=== PATIENT | male | born 1995 | race Caucasian/White ===

== ENCOUNTER 2018-10-06 15:04 | Emergency (ER) | payer MEDICAID ==
[2018-10-06 15:41] VITALS: BP 145/77
--- NOTE | 2018-10-06 16:35 | UC ---
Ear Complaint HPI - HPI Summary HPI Summary: Pt presents with c/o right ear feeling plugged. Pt states that he wears ear plugs at work - History of Current Complaint Chief Complaint: UCEar Stated Complaint: RIGHT EAR PLUGGED Time Seen by Provider: 10/06/18 16:23 Hx Obtained From: Patient Onset/Duration: Gradual Onset, Lasting Days, Still Present Severity Initially: Mild Severity Currently: Moderate Pain Intensity: 0 Associated Signs/Symptoms: Positive: Hearing Loss - Allergies/Home Medications Allergies/Adverse Reactions: Allergies Allergy/AdvReac Type Severity Reaction Status Date / Time No Known Allergies Allergy Verified 10/06/18 15:37 Home Medications: Home Medications NK [No Home Medications Reported] 10/06/18 [History Confirmed 10/06/18] PMH/Surg Hx/FS Hx/Imm Hx Previously Healthy: Yes - Surgical History Surgical History: None - Family History Known Family History: Positive: Cardiac Disease - Social History Occupation: Employed Full-time Lives: With Family Alcohol Use: None Substance Use Type: None Smoking Status (MU): Heavy Every Day Tobacco Smoker Type: Cigarettes, Smokeless Tobacco Amount Used/How Often: 1/2 PPD Have You Smoked in the Last Year: Yes - Immunization History Vaccination Up to Date: No Review of Systems All Other Systems Reviewed And Are Negative: Yes Constitutional: Positive: Negative Skin: Positive: Negative Eyes: Positive: Negative ENT: Positive: Ear Ache - loss of hearing right ear Respiratory: Positive: Negative Cardiovascular: Positive: Negative Gastrointestinal: Positive: Negative Genitourinary: Positive: Negative Motor: Positive: Negative Neurovascular: Positive: Negative Musculoskeletal: Positive: Negative Neurological: Positive: Negative Psychological: Positive: Negative Is Patient Immunocompromised?: No Physical Exam Triage Information Reviewed: Yes Appearance: Well-Appearing Vital Signs: Initial Vital Signs Temp 97.2 F 10/06/18 15:37 Pulse 54 10/06/18 15:37 Resp 16 10/06/18 15:37 BP 145/77 10/06/18 15:37 Pulse Ox 100 10/06/18 15:37 Vital Signs Reviewed: Yes Eye Exam: Normal ENT: Positive: Other - bilateral cerumen impaction Dental Exam: Normal Neck exam: Normal Respiratory: Positive: No respiratory distress Musculoskeletal Exam: Normal Neurological Exam: Normal Psychological Exam: Normal Skin Exam: Normal Ear Complaint Course/Dx - Differential Dx/Diagnosis Differential Diagnosis/HQI/PQRI: Cerumen Impaction Provider Diagnosis: Impacted cerumen, bilateral Discharge - Sign-Out/Discharge Documenting (check all that apply): Patient Departure All imaging exams completed and their final reports reviewed: No Studies - Discharge Plan Condition: Stable Disposition: HOME Patient Education Materials: Cerumen Impaction (ED) Referrals: No Primary Care Phys,NOPCP [Primary Care Provider] - [facility] [place] PHYSICIAN REFERRAL [Outside] - If Needed - Billing Disposition and Condition Condition: STABLE Disposition: Home
== END 2018-10-06 17:06 | disposition home or self-care (01) ==
LOC: UCCORT 15:04
DX: H61.23 Impacted cerumen, bilateral (principal); F17.210 Nicotine dependence, cigarettes, uncomplicated
CPT/HCPCS: 99203; G0463

== ENCOUNTER 2019-02-13 13:10 | Emergency (ER) | payer MEDICAID, OTHER ==
[2019-02-13 13:23] VITALS: BP 121/65
[2019-02-13] MEDS ORDERED: Ketorolac INJ* 30 MG/ML 1 ML VIAL IM ONE (14:07)
--- NOTE | 2019-02-13 14:28 | UC ---
Headache HPI - HPI Summary HPI Summary: Pt presents with c/o frontal LEYVA that began yesterday. Pt denies injury or hx of TIA or stroke, injury or recent insect bite, fever or URI symptoms. Pt states that he his LEYVA worsens slightly with bright lights and loud noises. Denies vision change or one sided weakness. - History Of Current Complaint Chief Complaint: UCHeadache Stated Complaint: HEADACHE Time Seen by Provider: 02/13/19 13:56 Hx Obtained From: Patient Onset/Duration: Sudden Onset, Lasting Days, Still Present Onset Of Symptoms: Sudden, Still Present Initially Headache Was: Moderate Currently Pain Is: Moderate Pain Intensity: 6 Timing: Constant Character: Dull, Throbbing, Pressure Location of Headache: Frontal, Temporal Aggravating Factor(s): Position Change, Bright Lights Allevating Factor(s): Nothing Associated Signs And Symptoms: Positive: Negative - Risk Factors SAH Risk Factors: Negative Meningitis Risk Factors: Negative SDH Risk Factors: Male Temporal Arteritis Risk Factors: Negative - Allergies/Home Medications Allergies/Adverse Reactions: Allergies Allergy/AdvReac Type Severity Reaction Status Date / Time No Known Allergies Allergy Verified 02/13/19 13:18 Home Medications: Home Medications Acetaminophen [Tylenol Extra Strength] 1,000 mg PO ONCE PRN 02/13/19 [History Confirmed 02/13/19] Ibuprofen TAB* [Motrin TAB* 800 MG] 800 mg PO ONCE PRN 02/13/19 [History Confirmed 02/13/19] PMH/Surg Hx/FS Hx/Imm Hx Previously Healthy: Yes - Surgical History Surgical History: None - Family History Known Family History: Positive: Cardiac Disease - Social History Occupation: Employed Full-time - works shift boss, began 5 months ago Alcohol Use: None Substance Use Type: None Smoking Status (MU): Heavy Every Day Tobacco Smoker Type: Cigarettes, Smokeless Tobacco Amount Used/How Often: 1/2 PPD Have You Smoked in the Last Year: Yes - Immunization History Vaccination Up to Date: No Review of Systems All Other Systems Reviewed And Are Negative: Yes Constitutional: Positive: Negative Skin: Positive: Negative Eyes: Positive: Photophobia ENT: Positive: Other - phonophobia Respiratory: Positive: Negative Cardiovascular: Positive: Negative Gastrointestinal: Positive: Negative Genitourinary: Positive: Negative Neurovascular: Positive: Negative Musculoskeletal: Positive: Negative Neurological: Positive: Headache Psychological: Positive: Negative Is Patient Immunocompromised?: No Physical Exam Triage Information Reviewed: Yes Appearance: Well-Appearing - was sleeping when I entered exam room. Vital Signs: Initial Vital Signs Temp 99.1 F 02/13/19 13:18 Pulse 63 02/13/19 13:18 Resp 14 02/13/19 13:18 BP 121/65 02/13/19 13:18 Pulse Ox 99 02/13/19 13:18 Vital Signs Reviewed: Yes Eye Exam: Normal, Other - PERRLA ENT Exam: Normal Dental Exam: Normal Neck exam: Normal Respiratory Exam: Normal Cardiovascular Exam: Normal Musculoskeletal Exam: Normal Neurological Exam: Normal Neurological: Positive: Muscle Tone Normal Psychological Exam: Normal Skin Exam: Normal Headache Course/Dx - Course Course Of Treatment: I discussed with the pt the need to seek further medical attention if his symptoms did not improve in the next 24 hours. Pt verbalized understanding and agreed to plan of care. - Differential Dx/Diagnosis Differential Diagnosis/HQI/PQRI: CVA, Migraine, Temporal Arteritis, Tension Headache Provider Diagnosis: Headache around the eyes Discharge ED - Sign-Out/Discharge Documenting (check all that apply): Patient Departure All imaging exams completed and their final reports reviewed: No Studies - Discharge Plan Condition: Stable Disposition: HOME Patient Education Materials: Migraine Headache (ED) Referrals: No Primary Care Phys,NOPCP [Primary Care Provider] - [facility] [place] PH[facility]IAN REFERRAL [Outside] - As Soon As Possible Additional Instructions: If your symptoms do not imporve please go directly to the closest Emergency Room. - Billing Disposition and Condition Condition: STABLE Disposition: Home
== END 2019-02-13 15:05 | disposition home or self-care (01) ==
LOC: UCCORT 13:10
DX: R51 Headache (principal); F17.210 Nicotine dependence, cigarettes, uncomplicated; F17.290 Nicotine dependence, other tobacco product, uncomplicated
CPT/HCPCS: 96372; 99211; G0463; J1885